=== PATIENT | male | born 1985 | race Hispanic/Latino ===

== ENCOUNTER 2020-07-07 07:55 | Day surgery (SDC) | payer OTHER ==
[~2020-07-07 07:55] MED LIST: ACETAMINOPHEN 500 MG TAB PO SCH; LACTATED RINGERS 1,000 ML IV SCH; MIDAZOLAM 2 MG/2 ML INJ IV NR; ceFAZolin/Water 2 GM/20 ML 2 GM/20 ML SYRINGE IV NR
--- NOTE | 2020-07-07 08:23 | Anesthesia Day of Surgery ---
Anesthesia Day of Surgery - Day of Surgery Patient Examined: Yes Patient H&P Reviewed: Yes Patient is NPO: Yes
--- NOTE | 2020-07-07 08:23 | Anesthesia Consultation ---
Anesthesia Consult and Med Hx Date of service: 07/07/20 - Airway Anesthetic Teeth Evaluation: Good ROM Head & Neck: Adequate Mental/Hyoid Distance: Adequate Mallampati Class: Class II Intubation Access Assessment: Probably Good - Pulmonary Exam CTA: Yes - Cardiac Exam Cardiac Exam: RRR - Pre-Operative Health Status ASA Pre-Surgery Classification: ASA2 Proposed Anesthetic Plan: General - Pulmonary Hx Smoking: No Hx Respiratory Symptoms: No Hx Sleep Apnea: No (IMAN PRE SCREEN LOW RISK) - Cardiovascular System Hx Hypertension: No Hx Heart Attack/AMI: No Hx Percutaneous Transluminal Coronary Angioplasty (PTCA): No Hx Cardia Arrhythmia: No (hx vasovagal syncope w/ associated sleep paralysis) - Central Nervous System Hx Back Pain: Yes (NECK AND BACK PAIN) Hx Psychiatric Problems: Yes (PTSD, depression) - Endocrine Hx Renal Disease: No Hx Liver Disease: No Hx Insulin Dependent Diabetes: No Hx Non-Insulin Dependent Diabetes: No Hx Thyroid Disease: No - Other Systems Hx Substance Use: Yes (occasional THC) Hx Obesity: No - Additional Comments Anesthesia Medical History Comments: Patient reports that he "woke up" during previous wrist cyst removal surgery. Description consistent with MAC anesthetic. Explained to patient that while there is a small risk of awareness under anesthesia, he will be under GA for today's surgery.
[2020-07-07] MEDS ORDERED: DIBUCAINE 1% OINT 28 GM ONE (09:24)
[2020-07-07] MEDS ORDERED: BUPIVACAINE/PF (0.25%) 2.5 MG/ML 30 ML VIAL INFILTRATI ONE (09:24)
[2020-07-07] MEDS ORDERED: LIDOCAINE (1%) 10 MG/1 ML VIAL 20 ML MDV ONE (09:25)
[2020-07-07] MEDS ORDERED: HYDROmorphone 1 MG/1 ML INJ ONE (09:31)
[2020-07-07] MEDS ORDERED: ONDANSETRON 4 MG/2 ML INJ ONE (09:31)
[2020-07-07] MEDS ORDERED: LIDOCAINE MPF (2%) 20 MG/1 ML VIAL 5 ML ONE (09:31)
[2020-07-07] MEDS ORDERED: ROCURONIUM 50 MG/5 ML INJ IV ONE (09:31)
[2020-07-07] MEDS ORDERED: dexAMETHasone 20 MG/5 ML VIAL ONE (09:31)
[2020-07-07] MEDS ORDERED: propofoL 200 MG/20 ML VIAL IV ONE (09:31)
[2020-07-07] MEDS ORDERED: BUPIVACAINE/PF (0.5%) 5 MG/1 ML 30 ML VIAL INFILTRATI ONE (10:37)
[2020-07-07] MEDS ORDERED: LIDOCAINE (1%) 10 MG/1 ML VIAL 20 ML MDV INFILTRATI ONE (10:37)
[2020-07-07] MEDS ORDERED: SODIUM CHLORIDE 0.9% IRR 1,500 ML BOTTLE IR ONE (10:39)
[2020-07-07] MEDS ORDERED: DIBUCAINE 1% OINT 28 GM PR ONE (10:42)
[2020-07-07] MEDS ORDERED: GLYCOPYRROLATE 0.4 MG/2 ML INJ ONE (10:43)
[2020-07-07] MEDS ORDERED: NEOSTIGMINE 10MG/10 ML INJ MDV ONE (10:43)
[2020-07-07] MEDS ORDERED: PHENYLEPHRINE/NS 1,000 MCG/10 ML SYRINGE (OR USE) IV ONE (10:51)
[2020-07-07] MEDS ORDERED: KETOROLAC 30 MG/1 ML INJ ONE (10:51)
[2020-07-07] MEDS ORDERED: LACTATED RINGERS 1,000 ML ONE (10:59)
--- NOTE | 2020-07-07 11:01 | Short Stay Summary ---
Short Stay Documentation Date of service: 07/07/20 - History Principal diagnosis: internal hemorrhoids H&P: obtained from office - Allergies and Medications Current Medications: Allergies No Known Allergies Allergy (Verified 07/03/20 17:05) Home Medications Medication Instructions Recorded Confirmed Last Taken Type AtorvaSTATin [Lipitor] 20 mg PO QHS 07/03/20 07/07/20 07/06/20 22:00 History Melatonin [Melatonin 3MG TAB] 3 mg PO QHS 07/03/20 07/07/20 07/06/20 22:00 History Sertraline [Zoloft] 50 mg PO QDAY 07/03/20 07/07/20 07/06/20 22:00 History traZODone [Desyrel] 50 mg PO PRN PRN 07/03/20 07/07/20 07/04/20 22:00 History Active Medications Acetaminophen (Tylenol) 1,000 mg PO PREOP BARRETT Stop: 07/07/20 23:59 Last Admin: 07/07/20 08:25 Dose: 1,000 mg Documented by: Hydromorphone HCl (Dilaudid) 0.5 mg IV Q10MIN PRN PRN Reason: Pain , Severe (7-10) Stop: 07/07/20 23:00 Lactated Ringer's (Lactated Ringers) 1,000 mls @ 100 mls/hr IV DIRECT BARRETT Stop: 07/07/20 23:59 Last Admin: 07/07/20 09:00 Dose: 100 mls/hr Documented by: Midazolam HCl (Versed) 2 mg IV PREOP NR Stop: 07/07/20 23:59 Last Admin: 07/07/20 09:05 Dose: 2 mg Documented by: - Brief post op/procedure progress note Date of procedure: 07/07/20 Pre-op diagnosis: internal hemorrhoids Post-op diagnosis: same Procedure: hemorrhoidectomy Anesthesia: GETA, local Findings: Multiple internal hemorrhoid complexes - left lat and right ant excised. Surgeon: MELIZA THRASHER Estimated blood loss: minimal Pathology: list (Hemorrhoids) Specimen disposition: to lab - Hospital course Hospital course: Pt observed in PACU and discharged to home in stable condition. - Disposition Condition at discharge: Good Disposition: DC-01 TO HOME OR SELFCARE Short Stay Discharge Plan Activity: no restrictions Diet: other (soft diet) Wound: open to air Additional Instructions: 1. After first bowel movement you will pass a piece of white gauze and some blood clots. This is normal 2. Take colace and miralax as prescribed for the next 3 days to help keep bowel movements soft and easy to pass 3. Please take over the counter tylenol or ibuprofen for pain as directed on the bottle. If your pain is not controlled with these medications, you have been given a prescription for stronger medications. Do not drive if you are taking the prescription pain medication 4. After bowel movements, use a moist wipe to clean the area. Do not use dry toilet paper 5. Apply anal cream to the area for topical pain relief Follow up with: [facility] [Primary Care Provider] - 7 Days MELIZA THRASHER DO [Staff Physician] - 14 Days Prescriptions: Docusate Sodium [Colace] 100 mg PO BID PRN #30 capsule PRN Reason: Constipation Polyethylene Glycol 3350 [Miralax] 119 gm PO DAILY PRN 5 Days powder PRN Reason: Constip Unreliev By Mom/Or Npo HYDROcodone/APAP 5-325 [[place] 5/325] 1 each PO Q6HR PRN #20 tablet PRN Reason: Pain
[2020-07-07] MEDS: HYDROmorphone 1 MG/1 ML INJ IV PRN ×2 (11:39→11:50)
[2020-07-07] MEDS ORDERED: HYDROcodone/ACETAMINOPHEN 5-325 MG TAB PO PRN (13:46)
--- NOTE | 2020-07-07 13:58 | Post Anesthesia Evaluation ---
- Post Anesthesia Evaluation Patient Participated: Yes Airway Patent: Yes Stable Respiratory Function: Yes Nausea/Vomiting: No Temp > 96.8F: Yes Pain Manageable: Yes Adequeate Hydration: Yes Anesthesia Complications: No
--- NOTE | 2020-07-07 14:11 | Operative Report ---
Operative Report Operative Report: Date of procedure: 07/07/20 Pre-op diagnosis: internal hemorrhoids Post-op diagnosis: same Procedure: Rectal exam under anesthesia hemorrhoidectomy Anesthesia: GETA, local Findings: Multiple internal hemorrhoid complexes - left lat and right ant excised. Surgeon: MELIZA THRASHER Estimated blood loss: minimal Pathology: list (Hemorrhoids) Specimen disposition: to lab - Hospital course Hospital course: Pt observed in PACU and discharged to home in stable condition. HPI and indication: Patient is a 35-year-old male with a history of hemorrhoids status post banding who presents to the surgery clinic for reevaluation of hemorrhoids. The patient was having symptoms from the hemorrhoids including pain and discomfort, intermittent bleeding. The options of banding and surgical excision were discussed with the patient. He elected to proceed with excision. All risk, benefits, alternatives to surgery were discussed with the patient questions answered. It was explained to the patient that only 2 hemorrhoid co mplexes could be excised at the time of the procedure and that if more than 2 were identified, an additional procedure would be necessary in the future. He understood. Consent was obtained for rectal exam under anesthesia and hemorrhoidectomy. Procedure in detail: Patient was then found the preoperative area, taken back to operating room. After anesthesia was induced on the patient's stretcher, the patient was transferred to the operating room table in prone position. All bony prominences were padded appropriately per protocol. The patient was placed in jackknife position and the buttocks taped apart using silk tape. The rectum and perirectal area was prepped and draped in usual sterile fashion a timeout performed. A rectal exam under anesthesia was performed. A retractor was plac ed in the rectum and the rectum was examined circumferentially. The patient had 3 hemorrhoid columns with the left lateral and right anterior being the most prominent. On physical exam in the office, the left lateral complex was most visible and bothersome to the patient. At this point the decision was made to excise the left lateral and right anterior internal hemorrhoid columns. I started with the left lateral hemorrhoid column. The apex of the hemorrhoid was identified and ligated using a 2-0 Vicryl interrupted stitch. The suture was left intact for reapproximating the mucosa. Using a hand-held harmonic scalpel the internal hemorrhoid column was dissected from the underlying muscle with great care to preserve the underlying muscle. The dissection was taken down to the suture ligature at the apex and then the hemorrhoid transected. The hemorrhoid was passed off the table as a specimen. The wound bed was checked for hemostasis which was carefully ensured. The rectal mucosa was then reapproximated using the 2-0 Vicryl stitch in a running fashion. I then turned my attention to the right anterior internal hemorrhoid column. This was excised in the same fashion. The anorectal skin was reapproximated with interrupted 3-0 chromic sutures with a small skin opening left to allow for drainage. The rectum was checked for hemostasis. This was very carefully ensured. The rectum was irrigated. Local anesthetic was infiltrated into all 4 quadrants of the perirectal tissue. A Surgifoam gauze coated with dibucaine was inserted into the rectum. The skin was cleansed and a 4 x 4 gauze was used to cover the rectum, covered by ABD pad, and secured with mesh underwear. At the end of the case all sponge, instrument, sharp counts were correct x2. The patient was awoken from anesthesia and transferred back to the stretcher in supine position. He was extubated and taken to PACU in stable condition.
[2020-07-07 16:00] VITALS: BP 120/80
== END 2020-07-07 14:28 | disposition home or self-care (01) ==
LOC: OR 07:55
PROVIDERS: ATTEND Surgery
DX: K64.8 Other hemorrhoids (principal); E78.00 Pure hypercholesterolemia, unspecified; K21.9 Gastro-esophageal reflux disease without esophagitis; M19.90 Unspecified osteoarthritis, unspecified site; Z87.442 Personal history of urinary calculi; Z79.899 Other long term (current) drug therapy; F32.9 Major depressive disorder, single episode, unspecified
CPT/HCPCS: 46260; 88304; J1100; J1170; J1885; J2250; J2370; J2405; J2704; J2710; J7120; U0003; J0690